=== PATIENT | male | born 1965 | race Two or more races ===

== ENCOUNTER → 2018-10-05 11:27 | Day surgery (SDC) | payer BC ==
[~2018-10-05 11:27] MED LIST: Buffered Lidocaine 1% SYRIN* 1 ML/SYRINGE INTRADERM ONE; Bupivacaine 0.5%* 50 ML VIAL ONE; Dexamethasone TAB* 4 MG ONE; Dexamethasone TAB* 4 MG PO ONE; DiMENhydriNATE IV* 50 MG/ML VIAL IV PUSH PRN; EPINEPHRINE 1 MG/ML 1 ML VIAL ONE; Famotidine IV* 10 MG/ML 2 ML (20 mg) IV ONE; Famotidine IV* 10 MG/ML 2 ML (20 mg) ONE; KETAMINE HCL* 50 MG/ML 10 ML VIAL ONE; Lactated Ringers 1000 ML Bag* 1,000 ML IV SCH; Midazolam* 1 MG/ML 5 ML VIAL (5 MG) ONE; Morphine 4 MG/ML VIAL (1 ml) 4 MG/ML VIAL IV PRN; Naloxone* 0.4 MG/ML 1 ML VIAL IV PRN; Ondansetron ODT TAB* 4 MG ONE; Ondansetron TAB* 4 MG PO ONE; PROCHLORPERAZINE INJ 5 MG/ML 2 ML VIAL IV PRN; ceFAZolin 2 GM in NS PREMIX(*) 2 GM/100 ML BAG IVPB ONE; fentaNYL* 50 MCG/ML 2 ML VIAL (100 MCG VIAL) ONE; methylPREDNISolone ACETATE 80* 80 MG/ML 1 ML VIAL ONE; oxyCODONE/Acetamin 5/325 MG* TAB ONE
[2018-10-05] MEDS: fentaNYL* 50 MCG/ML 2 ML VIAL (100 MCG VIAL) IV PRN ×4 (14:02→14:16)
[2018-10-05 15:18] VITALS: BP 137/92
--- NOTE | 2018-10-06 00:49 | OP ---
DATE OF OPERATION: 10/05/18 - [facility] DATE OF : 63 ATTENDING SURGEON: Margret Dickens MD ANESTHESIOLOGIST: Dr. Pringle. ANESTHESIA: General. PRE-OP DIAGNOSIS: Left knee medial meniscal tear, mild degenerative changes. POST-OP DIAGNOSIS: Left knee medial meniscal tear, mild degenerative changes. OPERATIVE PROCEDURE: Left knee arthroscopy with partial medial meniscectomy. ESTIMATED BLOOD LOSS: Less than 25 cc. COMPLICATIONS: None. SPECIMEN: None. BRIEF HISTORY/INDICATION: Mr. Courtney is a 53-year-old gentleman who had a twisting injury to his left knee several months ago. He suffered some mechanical symptoms since then without relief of pain from conservative treatment. MRI confirmed a medial meniscal tear. Due to the severity of the pain, the patient elected to undergo left knee arthroscopy with partial meniscectomy. Informed consent was obtained from the patient. He understood the risks of surgery included but were not limited to bleeding, infection, damage to nearby structures, continued pain, need for further surgery, retear of the meniscus, progression of arthritis, stroke, heart attack, blood clot, , and any anesthesia complications. He wished to proceed. INTRAOPERATIVE FINDINGS: Intraoperatively, the patient was noted to have a parrot-beak type tear involving the body and posterior horn of the medial meniscus. This was in the white-red and red-red zone. This fragment did easily displace into the joint space. He had some grade 2 and 3 Outerbridge cartilage changes in the patellofemoral and medial compartment. The medial femoral condyle was most affected. DESCRIPTION OF PROCEDURE: Mr. Courtney was identified in the preanesthesia unit. His left lower extremity was marked as the correct operative site. Informed consent was signed and placed in the chart. The patient was taken to the operating room and placed under general anesthesia. Left lower extremity was prepped and draped in the usual sterile fashion. Preop time-out was made to correctly identify the patient, side, and site. Appropriate perioperative antibiotics were given within 1 hour of incision. A 1.5 cm anterolateral portal incision was made with a 10-blade and carried down through the capsule. Trocar was introduced. As soon as the light source was turned on, there was immediate visualization of the suprapatellar pouch. A tour of the knee joint was performed. Suprapatellar pouch showed no obvious abnormalities. Patellofemoral compartment showed some grade 2 and 3 Outerbridge cartilage changes in the trochlear groove and medial patellar facet. Medial gutter showed no loose body or plica. Medial compartment showed some grade 2 and 3 Outerbridge cartilage changes with significant cartilage loss along the medial femoral condyle. A displaced medial meniscal tear was visible along the body and posterior horn of the medial meniscus. ACL and PCL appeared to be intact. The knee was placed in the [id number] position. There was no obvious meniscal tear of the lateral meniscus. Very minimal degenerative changes noted in the lateral compartment. Lateral gutter had no abnormalities. Under direct visualization, a medial portal incision was made with a 10-blade. A probe was introduced and a second tour of the knee joint was performed. No additional findings were noted. The medial meniscus tear was a parrot-beak type tear with some added complexity in the white-red and red-red zone involving the body and posterior horn of the medial meniscus. Straight biter and shaver were used to perform partial medial meniscectomy. A radiofrequency ablation wand was used to further smooth the edge of the meniscus. This was mainly in the white-red zone and minimally in the red-red zone. Further probing of the meniscus showed no additional tears or displaced fragments. The knee was copiously irrigated with sterile saline. The incisions were closed using 3-0 nylon suture. Intraarticular injection of 80 mg Depo-Medrol and 4 cc of 1% lidocaine were placed in the knee joint. The patient's incisions were dressed with sterile Xeroform, 4x4s, and Webril. Steven wrap and cold pack were placed over this. The patient's anesthesia was reversed without difficulty. He was taken to the PACU in stable condition. Intended weightbearing will be weight-bearing as tolerated. Intended DVT prophylaxis will be aspirin. [id number]/[facility] #: [id number] [facility]ENTER[facility]arod
== END | disposition home or self-care (01) ==
LOC: OR 11:27
PROVIDERS: ATTEND Orthopaedic Surgery Adult Reconstructive Orthopaedic Surgery
DX: S83.242A Other tear of medial meniscus, current injury, left knee, initial encounter (principal); M17.12 Unilateral primary osteoarthritis, left knee; X50.0XXA Overexertion from strenuous movement or load, initial encounter; Y92.9 Unspecified place or not applicable
CPT/HCPCS: A9270-GY; J0690; J1040; J2250; J3010; J8540